=== PATIENT | male | born 1995 | race Caucasian/White ===

== ENCOUNTER 2020-11-07 10:00 | Emergency (ER) | payer SELFPAY ==
[~2020-11-07] VITALS: Ht 170.2 cm; Wt 70.3 kg
[2020-11-07 10:10] VITALS: BP 144/86
== END 2020-11-07 12:44 | disposition home or self-care (01) ==
LOC: ER 10:00
DX: U07.1 COVID-19 (principal); J20.8 Acute bronchitis due to other specified organisms
CPT/HCPCS: 36415; 71045; 87426